=== PATIENT | male | born 1950 | race Caucasian/White ===

== ENCOUNTER → 2016-12-27 | Outpatient (CLI) | payer MEDICARE, BC ==
[~2016-12-27] MED LIST: ASPIRIN81 M2 PO; AVODART0.5 MG PO; CARDURA PO; CARDURA8 MG PO; CIPRO PO; CRESTOR PO; CRESTOR10 MG PO; FELDENE20 MG PO; FLEXERIL PO; FLOMAX0.4 M1 DOB; FLOMAX0.4 M1 PO; GABAPENTIN300 MG PO; GABAPENTIN400 M1; GABAPENTIN400 M1 PO; HYDROCODON-ACE1 EA11 PO; HYDROCODON-ACE1 EAC4 PO; HYDROCODON-ACE1 EAC5 PO; HYDROCODON-ACE1 EAC7 PO; HYDROCODONE-APA1 T51 PO; IBUPROFEN PO; JANUMET 50-1,1 UDTAB PO; KOMBIGLYZE XR1 EACH PO; LISINOPRIL PO; LISINOPRIL20 MG PO; LODINE PO; LOMOTIL TABLET1 TAB PO; LORTAB 10-5001 EACH PO; LORTAB 7.5-5001 TAB PO; OMEPRAZOLE40 M1 PO; OMEPRAZOLE40 MG PO; PERCOCET 51 UDTAB 5/ PO; PHENERGAN25 MG PO; PREDNISONE PO; PRILOSEC PO; PRILOSEC40 MG PO; PROTONIX PO; PYRIDIUM PO; TYLOX 5-500 CA1 EACH; TYLOX 5/500 CAP1 CAP PO; TYLOX1 CAP 5/50 PO; WELCHOL625 MG PO; ZANAFLEX PO; ZANAFLEX6 MG PO; ZOCOR PO; ZYLOPRIM100 MG PO
[2016-12-27 15:51] LABS: URINE APPEARANCE CLEAR; URINE BILIRUBIN NEG (NEG); URINE BLOOD 3+ (NEG); URINE COLOR YELLOW; URINE GLUCOSE NEG (NEG); URINE KETONE NEG (NEG); URINE LEUKOCYTE ESTERASE 1+ (NEG); URINE NITRATE NEG (NEG); URINE PH 5.5 (5-8); URINE PROTEIN NEG (NEG); URINE SPECIFIC GRAVITY 1.023 (1.003-1.035); URINE UROBILINOGEN 0.2 MG/DL (NEG)
[2016-12-27 15:53] LABS: CULTURE INDICATED? YES; URBCS1 AUWI 25-50 /[HPF] (0-2); URINE BACTERIA AUWI NEG (NEGATIVE); URINE SQUAMOUS EPITHELIAL CELL NONE SEEN /[HPF]
[2016-12-27 16:00] LABS: URINE SOURCE CLEAN CATCH
== END | disposition home or self-care (01) ==
LOC: CLAB 15:33
PROVIDERS: Nurse Practitioner
DX: R30.0 Dysuria (principal)
CPT/HCPCS: 81003; 87086